=== PATIENT | male | born 1990 | race Caucasian/White ===

== ENCOUNTER 2017-09-13 06:35 | Inpatient (IN) | payer OTHER ==
[~2017-09-13] VITALS: Ht 177.8 cm; Wt 81.6 kg
[2017-09-13 06:45] VITALS: BP 150/90
--- NOTE | 2017-09-13 06:49 | NUR ---
PT AMBULATED TO BED 3
--- NOTE | 2017-09-13 06:55 | NUR ---
Pt came to ED c/o severe abdominal pain from naval to right lower quadrant to right lower back. The pain is accompanied by nausea with x1 vomit. Pt states pain started at 4am. Pt in bed in poc with HOB elevated. VSS. ER MD elevated. Continue to monitor.
[2017-09-13] MEDS ORDERED: KETOROLAC 30 MG/ML VIAL IVP ONE (07:10)
[2017-09-13] MEDS ORDERED: ONDANSETRON 4 MG/2 ML VIAL IVP ONE (07:10)
[2017-09-13] MEDS ORDERED: NACL 0.9% 1,000 ML IV SCH (07:10)
--- NOTE | 2017-09-13 07:16 | NUR ---
Report given and care transfered to Aocsta GRACE
--- NOTE | 2017-09-13 07:34 | NUR ---
Patient appears to be resting comfortably in bed. Vital Signs within normal limits. Respirations even and unlabored.
[2017-09-13 07:35] LABS: HEMOGLOBIN 14.9 g/dL (12.0-18.0); MEAN CORPUSCULAR HEMOGLOBIN 30 pg (27-31); MEAN CORPUSCULAR HGB CONC 34 g/dL (33-37); MEAN CORPUSCULAR VOLUME 89 fL (80-94); PLATELET COUNT (AUTO) 188 K/uL (140-450); RED BLOOD CELL COUNT(AUTO) 4.93 MIL/uL (4.20-6.10); RED CELL DISTRIBUTION WIDTH 13.2 % (11.6-13.7); WHITE BLOOD COUNT (AUTO) 19.8 K/uL (4.8-10.8)
[2017-09-13 07:46] LABS: LYMPHOCYTES % (MANUAL) 9 % (20-46); MONOCYTES % (MANUAL) 6 % (5-12)
--- NOTE | 2017-09-13 07:46 | NUR ---
US at bedside
[2017-09-13 08:03] LABS: APPEARANCE,URINE CLEAR (CLEAR); BILIRUBIN,URINE NEGATIVE (NEGATIVE); BLOOD, URINE 1+ (NEGATIVE); COLOR,URINE YELLOW (YELLOW); LEUKOCYTE ESTERASE ,URINE NEGATIVE (NEGATIVE); NITRITE, URINE NEGATIVE (NEGATIVE); UGLUCOSE NEGATIVE (NEGATIVE)
[2017-09-13 08:16] LABS: RBC,URINE 3-10 (FEW) /HPF (0-5); WBC,URINE 0-5 (RARE) /HPF (0-5)
[2017-09-13 08:30] LABS: ANION GAP 17.7 (8-16); CARBON DIOXIDE 25.3 mmol/L (21-32); CREATININE 1.8 mg/dL (0.7-1.3); TOTAL BILIRUBIN 0.4 mg/dL (0.0-1.0)
[2017-09-13 08:31] LABS: ALBUMIN 4.3 g/dL (3.4-5.0)
[2017-09-13] MEDS ORDERED: ONDANSETRON 4 MG/2 ML VIAL IM/IVP PRN (10:00)
[2017-09-13] MEDS ORDERED: MORPHINE SULFATE 2 MG/ML SYR IVP PRN (10:00)
[2017-09-13] MEDS ORDERED: ZOLPIDEM 5 MG TAB PO PRN (10:00)
[2017-09-13] MEDS ORDERED: DOCUSATE SODIUM 100 MG GELCAP PO PRN (10:00)
[2017-09-13] MEDS ORDERED: LORazepam 0.5 MG TAB PO PRN (10:00)
[2017-09-13] MEDS ORDERED: HYDROcodone/APAP 7.5/325 MG 1 TAB PO PRN (10:00)
[2017-09-13] MEDS ORDERED: ACETAMINOPHEN 325 MG TAB PO PRN (10:00)
--- NOTE | 2017-09-13 10:32 | NUR ---
Patient will be admitted to care of Dr Thakur. Admited to Tele. Will go to [id number]. Belongings list completed. Report to SANJAY Chandra at bedside.
--- NOTE | 2017-09-13 10:35 | NUR ---
PATIENT ARRIVED AT UNIT WITH 2 ER NURSES. PATIENT AMBULATED FROM RNEY TO BED. AMBULATION WITH STEADY GAIT. SKIN INTACT. IV ON LEFT AC 20G. PATIENT ALERT AND ABLE TO VERBALIZE NEEDS, BELONGS WITH PATIENT AT BEDSIDE. DISCUSSED PLAN OF CARE .APPLIED TELEMONITOR. MRSA SCREENING DONE. PATIENT COMFORTABLE NO COMPLAINTS AT THIS TIME. WILL CONT WITH ADMISSION.
[2017-09-13 11:00] VITALS: BP 126/77
[2017-09-13 12:07] LABS: PHOSPHORUS 3.9 mg/dL (2.5-4.9); THYROID STIMULATING HORMONE 2.59 uIU/mL (0.34-3.74)
--- NOTE | 2017-09-13 12:10 | NUR ---
ULTRASOUND CALLED, DR ORDERED ABDOMINAL ULTRASOUND. PATIENT WILL NEED TO DRINK LOTS OF WATER TO FILL BLADDER. GAVE PATIENT PITCHER OF WATER . ADVISED TO DRINK.
[2017-09-13 12:31] LABS: PROTHROMBIN TIME 10.6 secs (10.8-13.4)
[2017-09-13] MEDS: NACL 0.9% 1,000 ML IV SCH ×2 (12:35→20:30)
--- NOTE | 2017-09-13 14:00 | NUR ---
ROOM CHANGE FROM 107B TO 119B, PATIENT AMBULATED ALL THE WAY ACCOMPANIED BY MOM, PATIENT ALERT AND ABLE TO MAKE NEEDS KNOWN, NO C/O PAIN. NO S/S OF DISTRESS, WILL CONT TO MONITOR Addendum: 09/13/17 at 1505 by Tammi Olivo RN WRONG TIME. ACTUAL TIME 1440.
--- NOTE | 2017-09-13 14:01 | NUR ---
CHANCELLOR IN ROOM, DOING ULTRASOUND OF ABDOMEN.
--- NOTE | 2017-09-13 15:28 | NUR ---
PATIENT HAS BEEN SCREENED AND CATEGORIZED LOW NUTRITION RISK. PATIENT WILL BE SEEN WITHIN 7 DAYS OF ADMISSION. 09/19/[address]
[2017-09-13 16:00] VITALS: BP 142/87
--- NOTE | 2017-09-13 16:46 | NUR ---
PT WATCHING TV AND TALKING ON THE PHONE. C/O "ABDOMINAL PAIN STARTING TO COME BACK". RIGHT NOW AT 09/24. WILL WAIT FOR PAIN MEDICATION. WILL LET ME KNOW IF IT BECOMES MODERATE.
--- NOTE | 2017-09-13 17:55 | NUR ---
PT EATING HIS CLEAR LIQ DIET. NO COMPLAINTS. ALL NEEDS MET AT THIS TIME. WILL CONTINUE TO MONITOR PT.
--- NOTE | 2017-09-13 19:04 | NUR ---
ENDORSED PT TO THE STRAPPER AND BUFFER NURSE AT BEDSIDE FOR CONTINUITY OF CARE. PT IS IN STABLE CONDITION.
--- NOTE | 2017-09-13 19:05 | NUR ---
RECEIVED HANDOFF REPORT FROM AM RN. PATIENT A&OX4. PATIENT DENIES PAIN. IV SITE PATENT AND INTACT. MOTHER AT BEDSIDE. NO SIGNS OR SYMPTOMS OF ACUTE DISTRESS NOTED. SAFETY MEASURES ENSURED. WILL CONTINUE TO MONITOR.
[2017-09-13 20:00] VITALS: BP 131/80
[2017-09-14] VITALS: BP 132/83
[2017-09-14 00:30] LABS: BARBITURATE, URINE NEG. ng/ml (NEG <=200); BENZODIAZEPINE, URINE NEG. ng/mL (NEG <=200); CANNABINOID, URINE POS. ng/mL (NEG <=50); COCAINE, URINE NEG. ng/mL (NEG <=300); OPIATE, URINE NEG. ng/mL (NEG <=2000); PHENCYCLIDINE SCREEN,URINE NEG. ng/mL (NEG <=25)
[2017-09-14] MEDS: NACL 0.9% 1,000 ML IV SCH ×2 (01:30→09:32)
[2017-09-14 06:12] LABS: T4 (THYROXINE) 3.9 ug/dL (4.5-12.0)
[2017-09-14 06:26] LABS: BASOPHILS # (AUTO) 0.2 K/uL (0.00-0.22); BASOPHILS % (AUTO) 1.3 % (0.0-2.0); EOSINOPHILS # (AUTO) 0.2 K/uL (0-0.4); EOSINOPHILS % (AUTO) 1.4 % (0.0-4.0); HEMATOCRIT 43.4 % (36-52); HEMOGLOBIN 14.4 g/dL (12.0-18.0); LYMPHOCYTES # (AUTO) 1.6 K/uL (2.0-11.5); LYMPHOCYTES % (AUTO) 11.4 % (20.5-51.1); MEAN CORPUSCULAR HEMOGLOBIN 30 pg (27-31); MEAN CORPUSCULAR HGB CONC 33 g/dL (33-37); MEAN CORPUSCULAR VOLUME 90 fL (80-94); MONOCYTES # (AUTO) 1.4 K/uL (0.8-1.0); NEUTROPHILS # (AUTO) 10.3 K/uL (1.8-7.7); NEUTROPHILS % (AUTO) 75.9 % (42.2-75.2); PLATELET COUNT (AUTO) 171 K/uL (140-450); RED CELL DISTRIBUTION WIDTH 12.9 % (11.6-13.7); WHITE BLOOD COUNT (AUTO) 13.7 K/uL (4.8-10.8)
--- NOTE | 2017-09-14 07:28 | NUR ---
ENDORSED PLAN OF CARE TO AM RN. PATIENT IN STABLE CONDITION.
--- NOTE | 2017-09-14 07:29 | NUR ---
RECEIVED REPORT FROM HOUSEHOLD COORDINATOR NURSE AT BEDSIDE FOR CONTINUITY OF CARE. PATIENT ALERT AND AWAKE WATCHING TV. VERBALIZED HE HAD A BM 09/14/17, NS @100ML/HR TO LEFT AC 20G. DENIES PAIN AT THIS TIME. TOLERATED CLEAR LIQUID DIET. WILL TALK TO MD ABOUT ADVANCING DIET. WILL CONT TO MONITOR PT.
[2017-09-14 07:33] LABS: MAGNESIUM 1.8 mg/dL (1.8-2.4); PHOSPHORUS 3.7 mg/dL (2.5-4.9)
[2017-09-14 07:43] LABS: ANION GAP 15.2 (8-16); CARBON DIOXIDE 24.8 mmol/L (21-32)
[2017-09-14 08:00] VITALS: BP 139/75
[2017-09-14 08:24] LABS: CREATININE 1.8 mg/dL (0.7-1.3)
--- NOTE | 2017-09-14 09:55 | NUR ---
PATIENT IN BED . ALERT AND ABLE TO MAKE NEEDS KNOWN. NO ACUTE DISTRESS NOTED. NO C/O PAIN. REPLACED IV FLUID BAG. WILL CONT TO MONITOR.
--- NOTE | 2017-09-14 11:06 | NUR ---
PT IN BED WATCHING TV. MOTHER AT BEDSIDE. PT DENIES PAIN OR DISCOMFORT. NO ACUTE DISTRESS NOTED. PATIENT AMBULATING TO BATHROOM PRN. WILL CONT TO MONITOR.
[2017-09-14] MEDS ORDERED: DOCU-300 PO (11:33)
[2017-09-14] MEDS ORDERED: ONDA4TAB PO (11:33)
[2017-09-14] MEDS ORDERED: LEVO750T2 PO (11:47)
[2017-09-14] MEDS ORDERED: LACT10CA PO (11:47)
--- NOTE | 2017-09-14 12:16 | NUR ---
1115 MET WITH PT AND HIS MOTHER NATIVIDAD AT BEDSIDE. PER PT/MOTHER PT DOES NOT HAVE A PCP PT HAD BEEN UNDER HIS MOTHERS [employer] INSURANCE BUT WHEN HE TURNED 27 HE HAD TO OBTAIN HIS OWN INSURANCE POLICY. PT STATED THAT HE IS AWARE OF THE NEED FOR FOLLOW UP AND WILL ACCESS THE [employer] WEB SITE FOR A LIST OF CONTRACTED PROVIDERS. NATIVIDAD STATED THAT SHE [place] A PHYSICIAN FRI[place] [facility] [place] [employer] [place] AND SHE WILL MAKE A RECOMMENDATION FOR A PCP. AN RX DISCOUNT CARD WAS PROVED PER REQUEST.
[2017-09-14] MEDS ORDERED: INFLUENZA VIRUS VACCINE QUAD 0.5 ML SYR IMVAC SCH (12:40)
--- NOTE | 2017-09-14 13:00 | NUR ---
PATIENT ALERT AND ABLE TO MAKE NEEDS KNOWN. NO ACUTE DISTRESS NOTED. NO C/O PAIN OR DISCOMFORT. PATIENT WITH MOTHER AT BEDSIDE. GAVE DISCHARGE INSTRUCTIONS TO PT AND MOTHER. VERBALIZED UNDERSTANDING AND AGREEMENT. PATIENT WITH ALL BELONGINGS WITH HIM TO TAKE UPON DISCHARGE. MEDICATION RX SENT TO PHARMACY OF CHOICE. IV 20G REMOVED TO RIGHT AC. PATIENT TOLERATED WELL. PATIENT REFUSED INFLUENZA VACCINE UPON DISCHARGE. DX EDUCATIONAL HANDOUTS PROVIDED FOR PATIENT IN DISCHARGE PACKET.ID BAND REMOVED.PT TO INFORM WHEN HE IS READY TO LEAVE.
--- NOTE | 2017-09-14 13:30 | NUR ---
PT WHEELED OUT IN WC TO FRONT OF BUILDING FOR DC. MOTHER PICKED UP PATIENT IN FRONT OF HOSPITAL. PT GOT INTO PRIVATE VEHICLE WITHOUT DIFFICULTIES.
--- NOTE | 2017-09-14 14:50 | NUR ---
CM NOTE INITIAL REVIEW FAXED TO [facility] [phone] DIANE CEE PH# [phone] EXT [phone]
== END 2017-09-14 13:30 | disposition home or self-care (01) | DRG 391 ==
LOC: MED 06:35 → MTU 09:57
PROVIDERS: ADMIT Family Medicine Sports Medicine; ATTEND Family Medicine Sports Medicine
DX: K52.9 Noninfective gastroenteritis and colitis, unspecified (principal); N17.0 Acute kidney failure with tubular necrosis; G92 Toxic encephalopathy; K56.41 Fecal impaction; F12.90 Cannabis use, unspecified, uncomplicated; Z87.891 Personal history of nicotine dependence
CPT/HCPCS: 36415; 71045; 76705; 76770; 80048; 80053; 80305; 81001; 82150; 83036; 83605; 83690; 83735; 83880; 84100; 84436; 84439; 84443; 84479; 84484; 85025; 85610; 85730; 87040; 87081; 90658; 96361; 96374; 96375; 99285; J1885; J2405; J7030; Q0092